=== PATIENT | female | born 1995 | race African-American/Black ===

== ENCOUNTER 2017-08-18 02:18 | Emergency (ER) | payer OTHER ==
[2017-08-18 02:31] VITALS: BP 136/78; PULSE 74; TEMP 100.9; BMI 35.9
--- NOTE | 2017-08-18 02:41 | PDOC ---
History of Present Illness - General Chief Complaint: Cold Symptoms Stated Complaint: SORE THROAT,CHILLS Time Seen by Provider: 08/18/17 02:40 Past History - Past Medical History Allergies/Adverse Reactions: Allergies Allergy/AdvReac Type Severity Reaction Status Date / Time No Known Allergies Allergy Verified 08/18/17 02:31 Home Medications: Ambulatory Orders NK [No Known Home Medication] 02/11/16 - Suicide/Smoking/Psychosocial Hx Smoking History: Never smoked Have you smoked in the past 12 months: No Information on smoking cessation initiated: No Hx Alcohol Use: No Drug/Substance Use Hx: No Substance Use Type: None *Physical Exam - Vital Signs Last Vital Signs Temp Pulse Resp BP Pulse Ox 100.9 F H 74 18 136/78 99 08/18/17 02:29 08/18/17 02:29 08/18/17 02:29 08/18/17 02:29 08/18/17 02:29 *DC/Admit/Observation/Transfer - Referrals Referrals: Jer Delgado [Primary Care Provider] - - Patient Instructions - Post Discharge Activity
--- NOTE | 2017-08-18 02:46 | PDOC ---
History of Present Illness - General Chief Complaint: Cold Symptoms Stated Complaint: SORE THROAT,CHILLS Time Seen by Provider: 08/18/17 02:40 - History of Present Illness Initial Comments: 08/18/17 02:45 Patient is a 21 y.o. female with no reported PMH who presents with a 2 day h/o sore throat, chills, chest tightness and productive (yellowish sputum) cough and subjective fever. Patient states the symptoms started acutely and in concert when she was resting at home. Patient denies any sick contacts however notes she returned from [place] last week (4 hour flight). Patient states her LMP was in early June and she is uncertain if she is . Patient denies any shortness of breath, nausea/vomiting, diarrhea/constipation, abdominal cramping or dysuria/hematuria. NKDA Surgical: denies Social: denies cigarettes, denies alcohol, denies recreational drugs Past History - Past Medical History Allergies/Adverse Reactions: Allergies Allergy/AdvReac Type Severity Reaction Status Date / Time No Known Allergies Allergy Verified 08/18/17 02:31 Home Medications: Ambulatory Orders NK [No Known Home Medication] 02/11/16 - Suicide/Smoking/Psychosocial Hx Smoking History: Never smoked Have you smoked in the past 12 months: No Information on smoking cessation initiated: No Hx Alcohol Use: No Drug/Substance Use Hx: No Substance Use Type: None Review of Systems - Review of Systems Constitutional: Yes: Chills, Fever HEENTM: No: Recent change in vision Respiratory: Yes: Productive cough. No: Shortness of Breath, Stridor, Wheezing Cardiac (ROS): Yes: Chest Tightness. No: Lightheadedness, Palpitations : No: Burning, Dysuria *Physical Exam - Vital Signs Last Vital Signs Temp Pulse Resp BP Pulse Ox 100.9 F H 74 18 136/78 99 08/18/17 02:29 08/18/17 02:29 08/18/17 02:29 08/18/17 02:29 08/18/17 02:29 - Physical Exam Comments: 08/18/17 02:57 GENERAL: Awake, alert, and fully oriented, in no acute distress HEAD: No signs of trauma EYES: PERRLA, EOMI, sclera anicteric, conjunctiva clear ENT: Auricles normal inspection, nares patent, no pharyngeal erythema or exudates NECK: Normal ROM, supple, no lymphadenopathy, JVD, or masses LUNGS: Breath sounds equal, clear to auscultation bilaterally. No wheezes, and no crackles HEART: Regular rate and rhythm, normal S1 and S2, no murmurs, rubs or gallops ABDOMEN: Soft, nontender, normoactive bowel sounds. No guarding, no rebound. No masses EXTREMITIES: Normal range of motion, no edema. No clubbing or cyanosis BACK: No midline spinal tenderness in cervical/thoracic/lumbar region NEUROLOGICAL: Normal speech, cranial nerves intact, SKIN: Warm, Dry, normal turgor, no rashes or lesions noted. ED Treatment Course - LABORATORY CBC & Chemistry Diagram: 08/18/17 03:34 08/18/17 03:34 Medical Decision Making - Medical Decision Making 08/18/17 02:59 21 y.o female with sore throat, productive cough and chest tightness. Clinical suspicion for viral respiratory illness vs. pneumonia vs. Influenza. Low clinical suspicion for pulmonary embolism, PERC (-) as well as no tachycardia, no dyspnea/hypoxia. CXR shows no consolidation/infiltrate. Influenza A/B negative. CBC negative for leukocytosis. CMP shows no electrolyte derangement. Patient symptomatically improved with Ibuprofen. Patient tolerating PO intake, improved. [place] d/c patient home with return precautions and instruction to f/u with PMD. *DC/Admit/Observation/Transfer Diagnosis at time of Disposition: Fever - Discharge Dispostion Disposition: HOME Condition at time of disposition: Good Admit: No - Referrals Referrals: Jer Delgado [Primary Care Provider] - - Patient Instructions Printed Discharge Instructions: DI for Viral Upper Respiratory Infection -- Adult Additional Instructions: Return to the Emergency Department for any new/worsening/concerning symptoms. - Post Discharge Activity Forms/Work/School Notes: Back to Work
[2017-08-18 03:50] LABS: BASO % 0.5 % (0-2.0); EOS % 0.6 % (0-4.5); HEMATOCRIT 39.7 % (32.4-45.2); HEMOGLOBIN 13.1 GM/dL (10.7-15.3); LYMPH % 11.3 % (8-40); MCH 28.7 pg (25.7-33.7); MCHC 32.9 g/dl (32.0-36.0); MEAN CELL VOLUME 87.2 fl (80-96); MEAN PLT VOLUME 9.9 fl (7.5-11.1); MONO % 16.2 % (3.8-10.2); NEUT % 71.4 % (42.8-82.8); PLATELET COUNT 197 K/MM3 (134-434); RBC 4.55 M/mm3 (3.60-5.2); RDW 13.9 % (11.6-15.6); WHITE BLOOD COUNT 5.9 K/mm3 (4.0-10.0)
[2017-08-18 04:39] LABS: ALBUMIN 4.1 g/dl (3.4-5.0); ALK PHOS 88 U/L (45-117); ANION GAP 8 (8-16); BILIRUBIN,TOTAL 0.3 mg/dL (0.2-1.0); BLOOD UREA NITROGEN 11 mg/dL (7-18); CALCIUM 8.8 mg/dL (8.5-10.1); CHLORIDE 102 mmol/L (98-107); CO2 28 mmol/L (21-32); CREATININE 1.2 mg/dL (0.55-1.02); GLUCOSE,RANDOM 83 mg/dL (74-106); POTASSIUM 4.4 mmol/L (3.5-5.1); SGOT/AST 31 U/L (15-37); SGPT/ALT 44 U/L (12-78); SODIUM 138 mmol/L (136-145); TOT PROT 7.7 g/dl (6.4-8.2)
[2017-08-18] MEDS ORDERED: IBUPROFEN 100 MG/5 ML UNIT DOSE CUPS PO ONE (05:22)
--- NOTE | 2017-08-18 05:27 | PDOC ---
Attending Attestation - Resident Resident Name: Porsche Martinez - HPI HPI: 08/18/17 05:22 Pt presents to the ED complaining of sore throat, cough and chest discomfort that started yesterday. Febrile in the ED. Denies shortness of breath. - Physicial Exam PE: 08/18/17 05:25 Agree with resident exam. Patient is febrile in the ED but is well appearing and in no apparent distress. Lungs are clear to auscultation bilaterally. - Medical Decision Making 08/18/17 05:25 Pt presents to the ED complainining of cough, sore throat and subjective fevers. Initial concern for flu, PNA. CXR and Labs are within normal limits. Flu swab is negative. Most likely viral syndrome. Will discharge home with ibuprofen and follow up with PMD.
[2017-08-18] MEDS ORDERED: IBUPROFEN 400 MG TABLET (FP) PO ONE (05:33)
--- NOTE | 2017-08-18 09:07 | EKG ---
Test Reason : Blood Pressure : / mmHG Vent. Rate : 084 BPM Atrial Rate : 084 BPM P-R Int : 126 ms QRS Dur : 072 ms QT Int : 358 ms P-R-T Axes : 060 046 004 degrees QTc Int : 423 ms NORMAL SINUS RHYTHM NORMAL ECG NO PREVIOUS ECGS AVAILABLE Confirmed by Jose Rodriguez ([id number]) on 08/18/2017 9:06:50 AM Referred By: Confirmed By:Jose Rodriguez
== END 2017-08-18 06:14 | disposition home or self-care (01) ==
LOC: JER 02:18
DX: J06.9 Acute upper respiratory infection, unspecified (principal); B97.89 Other viral agents as the cause of diseases classified elsewhere
CPT/HCPCS: 36415; 71046-TC-FY; 80053; 84703; 85025; 87804; 93005; 93010; 99281-25; 99283-25